=== PATIENT | male | born 1995 | race Caucasian/White ===

== ENCOUNTER 2021-05-01 12:53 | Emergency (ER) | payer OTHER ==
[~2021-05-01] VITALS: Ht 170.2 cm; Wt 61.2 kg
[2021-05-01 13:55] VITALS: BP 150/91
== END 2021-05-01 13:57 | disposition left against medical advice (07) ==
LOC: M.ERS 12:53
DX: R11.2 Nausea with vomiting, unspecified (principal); Z53.21 Procedure and treatment not carried out due to patient leaving prior to being seen by health care provider